=== PATIENT | male | born 1940 | race Hispanic/Latino ===

== ENCOUNTER 2017-03-24 14:32 | Inpatient (IN) | payer MEDICARE, OTHER ==
[~2017-03-24] VITALS: Ht 172.7 cm; Wt 60.2 kg
[2017-03-24 16:36] LABS: BASOPHILS % (AUTO) 0.4 % (0.0-5.0); EOSINOPHILS % (AUTO) 0.5 % (0.0-8.0); HEMATOCRIT 39.7 % (42-54); MEAN CORPUSCULAR HEMOGLOBIN 29.6 pg (27.0-33.0); MEAN CORPUSCULAR VOLUME 89.8 fL (79-99); MONOCYTES % (AUTO) 10.6 % (3.0-13.0); NEUTROPHILS % (AUTO) 77.5 % (40.0-77.0); PLATELET COUNT (AUTO) 248 K/uL (130-400); RED BLOOD CELL COUNT(AUTO) 4.42 MIL/uL (4.50-6.20); RED CELL DISTRIBUTION WIDTH 15.7 % (11.0-15.5); WHITE BLOOD COUNT (AUTO) 15.2 K/uL (4.8-10.8)
[2017-03-24 16:43] LABS: CREATININE 1.1 mg/dL (0.5-1.5)
[2017-03-24] MEDS ORDERED: ZOSYN 3.375GM+NS 50ML 50 ML IV ONE (20:15)
[2017-03-24] MEDS ORDERED: VANCOMYCIN 1GM+NS 250ML 250 ML IV ONE (21:42)
[2017-03-24] MEDS ORDERED: FLUO10CA21 PO (23:43)
[2017-03-25] VITALS (7 sets, daily range): BP systolic 107–143; BP diastolic 55–80
[2017-03-25] MEDS ORDERED: ZOSYN 3.375GM+NS 50ML 50 ML IV ONE ×2 (02:09→11:23)
[2017-03-25] MEDS ORDERED: ONDANSETRON HCL 4 MG/2 ML VIAL IVP PRN (04:00)
[2017-03-25] MEDS ORDERED: VANCOMYCIN PROTOCOL PER PHARMACY IV SCH (04:00)
[2017-03-25] MEDS ORDERED: ACETAMINOPHEN 325 MG TAB PO PRN (04:00)
[2017-03-25] MEDS: VANCOMYCIN 1GM+NS 250ML 250 ML IV SCH ×2 (09:20→21:12)
[2017-03-25] MEDS: ZOSYN 3.375GM+NS 50ML 50 ML IV SCH ×2 (11:25→17:52)
[2017-03-26] MEDS: ZOSYN 3.375GM+NS 50ML 50 ML IV SCH ×3 (02:19→18:53)
[2017-03-26 03:53] LABS: HEMATOCRIT 31.6 % (42-54); MEAN CORPUSCULAR HEMOGLOBIN 30.4 pg (27.0-33.0); MEAN CORPUSCULAR HGB CONC 34.1 g/dL (32.0-36.0); MEAN CORPUSCULAR VOLUME 89.1 fL (79-99); PLATELET COUNT (AUTO) 244 K/uL (130-400); RED BLOOD CELL COUNT(AUTO) 3.55 MIL/uL (4.50-6.20); RED CELL DISTRIBUTION WIDTH 15.4 % (11.0-15.5)
[2017-03-26 04:00] VITALS: BP 93/50
[2017-03-26 04:04] LABS: ALBUMIN 1.5 g/dL (3.5-5.0); BILIRUBIN,DIRECT 0.3 mg/dL (0.0-0.3); BILIRUBIN,TOTAL 0.7 mg/dL (0.2-1.0); CREATININE 0.9 mg/dL (0.5-1.5); MAGNESIUM 1.3 mg/dL (1.80-2.40); POTASSIUM 3.9 mmol/L (3.5-5.1); TOTAL PROTEIN, SERUM 5.4 g/dL (6.0-8.3)
[2017-03-26 04:42] LABS: BAND NEUTROPHILS % (MANUAL) 7 % (0-2); EOSINOPHILS % (MANUAL) 3 % (1-6); LYMPHOCYTES % (MANUAL) 14 % (22-44); MAN.DIFF COMMENT-IMPRESSION MANUAL DIFFERENTIAL; MONOCYTES % (MANUAL) 7 % (2-9); PLATELET MORPHOLOGY COMMENT ADEQUATE; SEGMENTED NEUTROPHILS % 69 % (40-70)
[2017-03-26 08:00] VITALS: BP 102/53
[2017-03-26] MEDS: ENOXAPARIN SODIUM 30 MG/0.3 ML SQ SCH (10:39)
[2017-03-26] MEDS: FAMOTIDINE 20MG TAB 20 MG TAB PO SCH ×2 (10:39→21:29)
[2017-03-26] MEDS: VANCOMYCIN 1GM+NS 250ML 250 ML IV SCH ×2 (10:39→21:00)
[2017-03-26 12:00] VITALS: BP 104/56
[2017-03-26] MEDS ORDERED: GUAI400T79 PO (14:05)
[2017-03-26] MEDS ORDERED: SULF1TAB42 PO (14:05)
[2017-03-26 16:00] VITALS: BP 118/63
[2017-03-26 19:00] VITALS: BP 106/58
[2017-03-26 23:00] VITALS: BP 102/54
[2017-03-27] MEDS ORDERED: ZOSYN 3.375GM+NS 50ML 50 ML IV ONE (01:58)
[2017-03-27] MEDS: ZOSYN 3.375GM+NS 50ML 50 ML IV SCH ×3 (02:10→19:31)
[2017-03-27 03:00] VITALS: BP 91/50
[2017-03-27 08:00] VITALS: BP 96/57
[2017-03-27] MEDS: FLUOXETINE HCL 10 MG CAPSULE PO SCH (11:17)
[2017-03-27] MEDS: FAMOTIDINE 20MG TAB 20 MG TAB PO SCH ×2 (11:17→20:43)
[2017-03-27] MEDS: VANCOMYCIN 1GM+NS 250ML 250 ML IV SCH ×2 (11:27→20:43)
[2017-03-27] MEDS: ENOXAPARIN SODIUM 30 MG/0.3 ML SQ SCH (11:32)
[2017-03-27] MEDS ORDERED: MAGNESIUM SULFATE 2 GM in SODIUM CHLORIDE 0.9% 50 ML IV SCH (11:45)
[2017-03-27 11:52] VITALS: BP 101/58
[2017-03-27 16:00] VITALS: BP 102/55
[2017-03-27 20:20] VITALS: BP 119/75
[2017-03-28] VITALS (7 sets, daily range): BP systolic 109–129; BP diastolic 61–78
[2017-03-28] MEDS: ZOSYN 3.375GM+NS 50ML 50 ML IV SCH ×3 (06:34→18:13)
[2017-03-28] MEDS: MAGNESIUM 2GM PREMIX 50ML 50 ML IV SCH ×2 (06:35→08:25)
[2017-03-28] MEDS: FAMOTIDINE 20MG TAB 20 MG TAB PO SCH ×2 (08:24→21:28)
[2017-03-28] MEDS: FLUOXETINE HCL 10 MG CAPSULE PO SCH (08:25)
[2017-03-28] MEDS: VANCOMYCIN 1GM+NS 250ML 250 ML IV SCH ×2 (08:29→21:29)
[2017-03-28] MEDS: ENOXAPARIN SODIUM 30 MG/0.3 ML SQ SCH (08:32)
[2017-03-28] MEDS ORDERED: MAGNESIUM SULFATE 2 GM in SODIUM CHLORIDE 0.9% 50 ML IV SCH (12:30)
[2017-03-28] MEDS ORDERED: MAGNESIUM 2GM PREMIX 50ML 50 ML IV SCH (12:45)
[2017-03-29] MEDS: ZOSYN 3.375GM+NS 50ML 50 ML IV SCH (01:52)
[2017-03-29 03:00] VITALS: BP 114/65
[2017-03-29 06:36] LABS: CREATININE 0.7 mg/dL (0.5-1.5); MAGNESIUM 1.7 mg/dL (1.80-2.40)
[2017-03-29 06:58] LABS: HEMATOCRIT 33.1 % (42-54); MEAN CORPUSCULAR HEMOGLOBIN 30.8 pg (27.0-33.0); MEAN CORPUSCULAR VOLUME 90.7 fL (79-99); PLATELET COUNT (AUTO) 229 K/uL (130-400); RED BLOOD CELL COUNT(AUTO) 3.65 MIL/uL (4.50-6.20); RED CELL DISTRIBUTION WIDTH 16.1 % (11.0-15.5); WHITE BLOOD COUNT (AUTO) 10.3 K/uL (4.8-10.8)
[2017-03-29 07:42] LABS: EOSINOPHILS % (MANUAL) 2 % (1-6); LYMPHOCYTES % (MANUAL) 21 % (22-44); MAN.DIFF COMMENT-IMPRESSION MANUAL DIFFERENTIAL; MONOCYTES % (MANUAL) 10 % (2-9); PLATELET MORPHOLOGY COMMENT ADEQUATE; SEGMENTED NEUTROPHILS % 67 % (40-70)
[2017-03-29 07:43] LABS: POTASSIUM 2.8 mmol/L (3.5-5.1)
[2017-03-29 08:00] VITALS: BP 115/59
[2017-03-29] MEDS: VANCOMYCIN 1GM+NS 250ML 250 ML IV SCH (09:00)
[2017-03-29] MEDS: ENOXAPARIN SODIUM 30 MG/0.3 ML SQ SCH (10:09)
[2017-03-29] MEDS: FLUOXETINE HCL 10 MG CAPSULE PO SCH (10:10)
[2017-03-29] MEDS: FAMOTIDINE 20MG TAB 20 MG TAB PO SCH (10:10)
[2017-03-29] MEDS: MAGNESIUM 2GM PREMIX 50ML 50 ML IV SCH (10:10)
[2017-03-29 11:00] VITALS: BP 100/56
[2017-03-29] MEDS ORDERED: POTASSIUM CHLORIDE 20 MEQ ERTAB PO PRN (11:15)
[2017-03-29] MEDS ORDERED: POTASSIUM CHLORIDE 20MEQ/100ML 100 ML IV PRN (11:15)
[2017-03-29] MEDS ORDERED: LIDOCAINE HCL-MPF 1% 2ML VIAL IVP PRN (11:15)
[2017-03-29] MEDS ORDERED: POTASSIUM CHLORIDE 10% ELIXIR 20 MEQ/15 ML UDCUP PO PRN (11:15)
[2017-03-29 16:00] VITALS: BP 103/61
[2017-03-29] MEDS ORDERED: PIPERACILLIN SODIUM/TAZOBACTAM 3.375 GM VIAL IV SCH (16:00)
[2017-03-29 20:15] VITALS: BP 113/59
== END 2017-03-29 21:10 | DRG 592 ==
LOC: EDH 14:32 → EDHIP 17:32 → 3BH 22:14
PROVIDERS: ADMIT Family Medicine; ATTEND Family Medicine
DX: L89.159 Pressure ulcer of sacral region, unspecified stage (principal); E43 Unspecified severe protein-calorie malnutrition; I69.354 Hemiplegia and hemiparesis following cerebral infarction affecting left non-dominant side; L89.629 Pressure ulcer of left heel, unspecified stage; F03.90 Unspecified dementia, unspecified severity, without behavioral disturbance, psychotic disturbance, mood disturbance, and anxiety; F32.9 Major depressive disorder, single episode, unspecified; I73.9 Peripheral vascular disease, unspecified; Z68.20 Body mass index [BMI] 20.0-20.9, adult
CPT/HCPCS: 36415; 80048; 80076; 80202; 83735; 85025; 92610; A4218; J1650; J2543; J3370; J3475; J3480; J3490